=== PATIENT | male | born 1940 | race Two or more races ===

== ENCOUNTER 2017-10-10 14:24 | Outpatient (CLI) | payer OTHER ==
[~2017-10-10 14:24] MED LIST: ASA81 MG; LISINOPRIL2.5 MG; LOPRESSOR25 MG; PRILOSEC10 MG; TAMBOCOR100 MG; ZESTRIL2.5 MG
== END 2017-10-10 14:32 | disposition home or self-care (01) ==
LOC: RAD 14:24
DX: M15.8 Other polyosteoarthritis (principal)

== ENCOUNTER 2018-05-16 12:31 | Outpatient (CLI) | payer OTHER | END 2018-05-16 13:09 | disposition home or self-care (01) | LOC: RAD 12:31 | DX: M54.5 Low back pain (principal); M15.8 Other polyosteoarthritis ==

== ENCOUNTER 2018-08-09 11:29 | Outpatient (CLI) | payer OTHER | END 2018-08-09 11:33 | disposition home or self-care (01) | LOC: RAD 11:29 | DX: I10 Essential (primary) hypertension (principal) ==

== ENCOUNTER 2018-12-16 11:48 | Outpatient (CLI) | payer OTHER | END 2018-12-16 14:39 | disposition home or self-care (01) | LOC: TOM 11:48 | DX: J98.59 Other diseases of mediastinum, not elsewhere classified (principal) ==

== ENCOUNTER 2018-12-19 14:42 | Outpatient (CLI) | payer OTHER | END 2018-12-19 15:04 | disposition home or self-care (01) | LOC: RAD 14:42 | DX: S19.9XXA Unspecified injury of neck, initial encounter (principal); S02.119A Unspecified fracture of occiput, initial encounter for closed fracture ==

== ENCOUNTER 2019-02-02 12:46 | Outpatient (CLI) | payer OTHER | END 2019-02-02 13:02 | disposition home or self-care (01) | LOC: RAD 12:46 | DX: M43.06 Spondylolysis, lumbar region (principal) ==

== ENCOUNTER → 2019-05-20 | Outpatient (CLI) | payer OTHER | END | disposition home or self-care (01) | LOC: RX STUDY 08:47 | DX: R13.19 Other dysphagia (principal) ==

== ENCOUNTER 2019-12-16 11:37 | Outpatient (CLI) | payer OTHER | END 2019-12-16 11:44 | disposition home or self-care (01) | LOC: RAD 11:37 | DX: Z01.811 Encounter for preprocedural respiratory examination (principal) ==

== ENCOUNTER 2021-01-24 11:42 | Outpatient (CLI) | payer OTHER | END 2021-01-24 11:48 | disposition home or self-care (01) | LOC: RAD 11:42 | PROVIDERS: ATTEND Internal Medicine Cardiovascular Disease | DX: I10 Essential (primary) hypertension (principal) ==

== ENCOUNTER 2021-01-25 09:13 | Outpatient (CLI) | payer OTHER | END 2021-01-25 09:17 | disposition home or self-care (01) | LOC: NUCLEAR 09:13 | PROVIDERS: ATTEND Internal Medicine Cardiovascular Disease | DX: I42.8 Other cardiomyopathies (principal); I48.91 Unspecified atrial fibrillation ==

== ENCOUNTER 2022-08-22 12:18 | Outpatient (CLI) | payer OTHER | END 2022-08-22 12:25 | disposition home or self-care (01) | LOC: RAD 12:18 | PROVIDERS: ATTEND Internal Medicine Cardiovascular Disease | DX: I10 Essential (primary) hypertension (principal) ==

== ENCOUNTER 2022-09-18 09:46 | Outpatient (CLI) | payer OTHER | END 2022-09-18 09:48 | disposition home or self-care (01) | LOC: NUCLEAR 09:46 | PROVIDERS: ATTEND Internal Medicine Cardiovascular Disease | DX: I27.21 Secondary pulmonary arterial hypertension (principal) ==

== ENCOUNTER 2023-01-18 10:10 | Outpatient (CLI) | payer OTHER | END 2023-01-18 10:18 | disposition home or self-care (01) | LOC: NUCLEAR 10:10 | PROVIDERS: ATTEND Internal Medicine Cardiovascular Disease | DX: I27.29 Other secondary pulmonary hypertension (principal) ==